=== PATIENT | male | born 1940 | race Native Hawaiian/Other Pacific Islander ===

== ENCOUNTER 2020-12-28 21:37 | Emergency (ER) | payer OTHER ==
[~2020-12-28] VITALS: Ht 160 cm; Wt 71.7 kg
[2020-12-28 21:37] VITALS: BP 182/88; TEMP 99.1
[2020-12-28 22:08] LABS: PLATELET COUNT 203 K/uL (142-355)
[2020-12-28 22:26] LABS: POTASSIUM 3.4 mmol/L (3.6-5.2)
[2020-12-28] MEDS ORDERED: CLOPIDOGREL75 MG PO (23:59)
[2020-12-29] MEDS ORDERED: DONEPEZIL HYDRO10 M1 PO (00:02)
[2020-12-29] MEDS ORDERED: EUTHYROX50 MCG PO (00:03)
[2020-12-29] MEDS ORDERED: NITR0.4S2 SL (00:11)
[2020-12-29] MEDS ORDERED: SEROQUEL25 MG PO (00:13)
[2020-12-29] MEDS ORDERED: SERT100T PO (00:15)
[2020-12-29] MEDS ORDERED: TRIA37.541 PO (00:23)
[2020-12-29] MEDS ORDERED: LISI5TAB10 PO (00:24)
[2020-12-29] MEDS ORDERED: BUSPIRONE HYDROC5 MG PO (00:29)
[2020-12-29] MEDS ORDERED: DIVA125C PO (00:31)
[2020-12-29] MEDS ORDERED: KLOR-CON M1010 MEQ PO (00:32)
[2020-12-29] MEDS ORDERED: MEMA5TAB PO (00:33)
[2021-01-15] MEDS ORDERED: RISP0.25 PO (09:36)
[2021-01-15] MEDS ORDERED: MEMA5TAB PO (09:36)
[2021-01-15] MEDS ORDERED: DIVALPROEX500 MG PO (09:37)
[2021-01-15] MEDS ORDERED: BUSP5TAB2 PO (09:37)
[2021-01-15] MEDS ORDERED: DIVA250T PO (09:37)
[2021-01-15] MEDS ORDERED: LEVO0.0529 PO (09:37)
== END 2020-12-28 22:45 | disposition still patient (30) ==
LOC: ED 21:37
PROVIDERS: Emergency Medicine Emergency Medical Services
DX: F03.91 Unspecified dementia, unspecified severity, with behavioral disturbance (principal); F22 Delusional disorders; Z11.59 Encounter for screening for other viral diseases; Z04.6 Encounter for general psychiatric examination, requested by authority
CPT/HCPCS: 36415; 80053; 81000; 85027; 87635; 93005; 99283; U0003